=== PATIENT | male | born 1955 | race African-American/Black ===

== ENCOUNTER 2016-07-08 09:59 | Inpatient (IN) | payer OTHER ==
[2016-07-08] VITALS (8 sets, daily range): BP systolic 146–201; BP diastolic 75–117; PULSE 71; TEMP 36.9; O2SAT 94; Ht 172.7 cm; Wt 97.3 kg
[~2016-07-08] VITALS: Ht 172.7 cm; Wt 97.3 kg
[2016-07-08] MEDS ORDERED: ONDANSETRON INJ 2 MG/ML 2 ML VIAL IV STA (10:21)
[2016-07-08] MEDS ORDERED: MoRPHine SULFATE 4 MG/ML 1 ML CARP\\VIAL IV STA ×2 (10:21→12:25)
[2016-07-08] MEDS ORDERED: OPTIRAY 320 IV PRN (10:30)
[2016-07-08 10:48] LABS: BASO % 0.2 %; BASO ABS # 0.01 K/uL (0-0.2); COMPLETE YES; EOS % 0.2 %; HEMATOCRIT 43.8 % (42-52); IG% 0.3 %; LYMPH % 31.6 %; LYMPH ABS # 1.91 K/uL (1.2-3.4); MEAN CELL VOLUME 79.1 fL (80-100); MEAN CORPUSCULAR HEMOGLOBIN 28.3 pg (25-34); MEAN CORPUSCULAR HGB CONC 35.8 g/dl (32-36); MEAN PLATELET VOLUME 9.6 fL (7.4-10.4); MONO % 6.9 %; NEUT % 60.8 %; PLATELET COUNT 185 K/uL (130-400); RED BLOOD COUNT 5.54 M/uL (4.7-6.1); WHITE BLOOD COUNT 6.05 K/uL (4.8-10.8)
[2016-07-08 11:08] LABS: URINE APPEARANCE CLEAR (CLEAR); URINE BILIRUBIN NEG (NEG); URINE COLOR DK YELLOW; URINE NITRITE NEG (NEG); URINE PH 6.5 (4.5-7.5); URINE SPECIFIC GRAVITY 1.022 (1.000-1.030); UROBILINOGEN NEG (NEG)
[2016-07-08 11:09] LABS: MANUAL MICROSCOPIC REQUIRED? NO; REVIEW REQ? NO
[2016-07-08 11:20] LABS: ALKALINE PHOSPHATASE 88 U/L (45-117); ALT/SGPT 35 U/L (12-78); AST/SGOT 27 U/L (15-37); BLOOD UREA NITROGEN 14 mg/dl (7-18); BUN/CREATININE RATIO 12.7 (10-20); CALCIUM 9.2 mg/dl (8.5-10.1); CARBON DIOXIDE 30 mmol/L (21-32); CHLORIDE 102 mmol/L (98-107); GLUCOSE 209 mg/dl (70-99); POTASSIUM 3.9 mmol/L (3.5-5.1); SODIUM 137 mmol/L (136-145)
--- NOTE | 2016-07-08 12:15 | DIAGNOSTIC IMAGING REPORT ---
ABDOMEN AND PELVIS CT WITH IV CONTRAST CT DOSE: 1025.62 mGycm HISTORY: Right lower quadrant abdominal pain. TECHNIQUE: Multiaxial CT images of the abdomen and pelvis were performed following the use of intravenous contrast. COMPARISON STUDY: None. FINDINGS: Bibasilar linear densities consistent with subsegmental atelectasis. No pneumoperitoneum. No pneumatosis. Tiny fat-containing umbilical hernia. No suspicious lytic or blastic osseous lesions. Trace pelvic free fluid. Mild bladder wall thickening may be due to underdistention. Multiple mildly thickened loops of small bowel within the left lower quadrant. This is consistent with a nonspecific enteritis. There is trace mesenteric edema. No dilated loops of small bowel to suggest an obstruction at this time. Normal appendix. Trace perisplenic ascites. The liver, spleen, adrenal glands, and kidneys are within normal limits. No hydronephrosis. No retroperitoneal lymphadenopathy. The pancreatic duct within the body and tail the pancreas is distended measuring up to 1 cm with associated severe pancreatic atrophy. There is abrupt caliber change at the head of the pancreas. The head of the pancreas appears bulbous. Therefore, these findings are highly suspicious for a pancreatic head mass. However, the common bile duct is normal in caliber. The main portal vein is patent. However, the fat plane between the pancreatic head and portal splenic confluence appears obliterated. This is also concerning for pancreatic head lesion. IMPRESSION: 1. Multiple mildly thickened loops of small bowel within the left lower quadrant with surrounding mesenteric fluid. This is consistent with a nonspecific enteritis. 2. Distended main pancreatic duct within the body and tail of the pancreas with associated severe pancreatic atrophy. There is abrupt caliber change of the pancreatic duct at the bulbous appearing pancreatic head. Therefore, these findings are highly suspicious for a pancreatic head mass. This requires endoscopic ultrasound follow-up for confirmation. Electronically signed by: Blayne Moreno M.D. 07/08/2016 12:13 PM Dictated Date/Time: 07/08/2016 12:01 PM
[2016-07-08] MEDS ORDERED: OMEP20TA PO (12:33)
[2016-07-08] MEDS ORDERED: MULT-17 PO (12:33)
[2016-07-08] MEDS ORDERED: GABA600T PO (12:33)
[2016-07-08] MEDS ORDERED: ATOR-24 PO (12:33)
[2016-07-08] MEDS ORDERED: CHOL1000 PO (12:33)
[2016-07-08] MEDS ORDERED: INSHRIE SQ (12:33)
[2016-07-08] MEDS ORDERED: LISI-461 PO (12:33)
[2016-07-08] MEDS ORDERED: HYDR50CA2 PO (12:33)
[2016-07-08] MEDS ORDERED: IMD2 PO (12:33)
[2016-07-08] MEDS ORDERED: ELVI1TAB6 PO (12:33)
[2016-07-08] MEDS ORDERED: INSU1INJ SC (12:33)
[2016-07-08] MEDS ORDERED: LSN/10125 PO (12:33)
[2016-07-08] MEDS ORDERED: ACETAMINOPHEN 325 MG TAB PO PRN (13:45)
[2016-07-08] MEDS ORDERED: ONDANSETRON INJ 2 MG/ML 2 ML VIAL IV PRN (13:45)
[2016-07-08] MEDS ORDERED: ALUMINUM/MAGNESIUM/SIMETH (MAALOX MAX) 30 ML UDC PO PRN (13:45)
[2016-07-08] MEDS ORDERED: HYDROmorphone INJ 0.5 MG/0.5 ML SYR IV PRN (13:45)
[2016-07-08] MEDS ORDERED: MAGNESIUM HYDROXIDE SUSP 30 ML UDC PO PRN (13:45)
[2016-07-08] MEDS ORDERED: POLYETHYLENE (MIRALAX) 17 GM PACK PO PRN (13:45)
[2016-07-08] MEDS ORDERED: MoRPHine SULFATE 10 MG/ML CARP/VIAL IV PRN (14:15)
[2016-07-08] MEDS ORDERED: GLUCOSE 40% GEL 15 GM TUBE PO PRN (15:30)
[2016-07-08] MEDS ORDERED: DEXTROSE 50% 50 ML SYR IV PRN (15:30)
[2016-07-08] MEDS ORDERED: GLUCOSE 10 TABS/TUBE PO PRN (15:30)
[2016-07-08] MEDS ORDERED: GLUCAGON FOR INJ 1 MG VIAL SQ PRN (15:30)
[2016-07-08] MEDS ORDERED: ACETAMINOPHEN IV 100 ML IV PRN (15:45)
--- NOTE | 2016-07-08 15:52 | History and Physical ---
History & Physical Date & Time of Service: Jul 08, 2016 at 13:26 Chief Complaint: Abd. Pain Primary Care Physician: Lalo WALTERS History of Present Illness Source: patient Mr. Delgadillo is a 61 y/o male with PMHx of GERD/Ruptured PUD, Diabetes Mellitus, HTN, HLD, Hepatitis C, and HIV (CD4 1100, undetectable viral load) who presents to the ED complaining of constant diffuse abdominal pain 2 days. Patient is a prisoner from [facility]. Reports pain started suddenly and he describes it as sore and a 10/10. He cannot pinpoint a specific location that is worse than the rest. He states this pain feels similar to when he had a ruptured peptic ulcer which he underwent surgery 3 years ago for. Associated vomiting with clear emesis. He denies coffee-ground emesis. Associated constipation with last bowel movement prior to these symptoms onset. Associated abdominal distention. He denies fever/chills, chest pain, SOB, dysuria, diarrhea. He denies contacts. He denies chronic NSAID use. Patient is HIV positive and currently on Genvoya with last dose taken this morning. In the ED, he is afebrile and mildly hypertensive. No evidence of leukocytosis and lipase is WNL. Abdominal CT revealing multiple mildly thickened loops of small bowel in the left lower quadrant and mesenteric fluid that suggests nonspecific enteritis, evidence of a distended main pancreatic duct, and severe pancreatic atrophy. CT imaging suggesting a pancreatic head mass. Patient will be admitted to [facility] for pain management and GI consultation in regards to CT findings. Past Medical/Surgical History Medical Problems: (1) Diabetes Status: Chronic (2) Hepatitis C Status: Chronic (3) HIV (human immunodeficiency virus infection) Status: Chronic Family History Patient reports no known family medical history. Social History Smoking Status: Never Smoker Smokeless Tobacco Use: Yes Alcohol Use: none Drug Use: none Housing status: other ([facility] prisoner) Allergies Coded Allergies: No Known Allergies (Unverified , 07/08/16) Home Medications Scheduled Atorvastatin (Lipitor), 40 MG PO DAILY Cholecalciferol (Vitamin D3), 1 TAB PO DAILY Wgwfvayigzui-Gbqztwyabh-Gphpqo (Genvoya [phone] mg), 1 TAB PO DAILY Gabapentin (Neurontin), 600 MG PO TID Hctz/Lisinopril (Lisinopril/Hctz 10/12.5 Mg), 1 TAB PO DAILY Hydroxyzine Pamoate (Vistaril), 50 MG PO QPM Insulin Human Regular (Humulin R), 1 DOSE SQ QID Insulin Isophan/Regular (Humulin 70/30), 37 UNITS SC AMPM Lisinopril (Zestril), 10 MG PO DAILY Multiple Vitamins W/ Minerals (Thera M Plus), 1 TAB PO DAILY Omeprazole (Omeprazole), 1 TAB PO DAILY Miscellaneous Medications Loperamide HCl (Loperamide HCl), 1 CAP PO Review of Systems REVIEW OF SYSTEMS: General/Constitutional: Denies fever/chills, fatigue, weakness, weight gain/loss ENT: Denies visual changes, nasal drainage, hearing loss, sore throat, trouble swallowing Cardiovascular: Denies chest pain, palpitations, edema Respiratory: Denies cough, sputum, SOB, wheezing, orthopnea GI: +nausea, +vomiting, +diffuse abdominal pain, +constipation; Denies diarrhea , melena/hematochezia : Denies dysuria, frequency, hematuria Musculoskeletal: Denies joint/muscle aches, weakness, swelling Neurologic: Denies dizziness/lightheadedness, numbness/tingling, weakness Psychiatric: Deferred Endocrine: Deferred Hematologic/Lymphatic: +HIV positive; Denies bleeding/clotting abnormalities Skin: Denies rash, itch, new skin changes, easy bruising Allergy/Immunologic: Deferred Physical Exam Vital Signs Date Time Temp Pulse Resp B/P Pulse Ox O2 Delivery O2 Flow Rate FiO2 07/08/16 12:18 74 14 182/107 92 Room Air 07/08/16 10:43 79 20 162/94 97 Room Air 07/08/16 10:11 36.5 85 20 167/110 93 Room Air PHYSICAL EXAM:: General Appearance: WDWN in mild distress(uncomfortable) and chronically ill- appearing who is A&O x 3 HEENT: Head is normocephalic/atraumatic; EOMI; PERRLA; Hearing grossly intact; Mucous membranes dry; Pharynx negative for exudate/lesions Neck: Supple; Trachea midline; Neg JVD; Neg lymphadenopathy Heart: RRR with no M/G/R Lungs: CTA in all lung keenan bilaterally; Respirations unlabored; Neg accessory muscle use Abdomen: Soft, non-tender with light and deep palpation, non-distended; Positive BS x 4 quadrants; Neg organomegaly, neg acute abdomen/guarding/rigidity Extremities: Capillary refill < 2 seconds; Neg cyanosis or edema Neurological: Speech clear; Gross motor/sensory function intact; Neg focal neurologic deficits Psychiatric: Appropriate mood/affect Skin: Normal Color; Warm/Dry; Neg rashes, ecchymosis, lacerations/ulcerations Diagnostics Laboratory Results Results Past 24 Hours Test 07/08/16 10:32 07/08/16 10:51 Range/Units White Blood Count 6.05 4.8-10.8 K/uL Red Blood Count 5.54 4.7-6.1 M/uL Hemoglobin 15.7 14.0-18.0 g/dL Hematocrit 43.8 42-52 % Mean Corpuscular Volume 79.1 80-100 fL Mean Corpuscular Hemoglobin 28.3 25-34 pg Mean Corpuscular Hemoglobin Concent 35.8 32-36 g/dl Platelet Count 185 130-400 K/uL Mean Platelet Volume 9.6 7.4-10.4 fL Neutrophils (%) (Auto) 60.8 % Lymphocytes (%) (Auto) 31.6 % Monocytes (%) (Auto) 6.9 % Eosinophils (%) (Auto) 0.2 % Basophils (%) (Auto) 0.2 % Neutrophils # (Auto) 3.68 1.4-6.5 K/uL Lymphocytes # (Auto) 1.91 1.2-3.4 K/uL Monocytes # (Auto) 0.42 0.11-0.59 K/uL Eosinophils # (Auto) 0.01 0-0.5 K/uL Basophils # (Auto) 0.01 0-0.2 K/uL RDW Standard Deviation 40.5 36.4-46.3 fL RDW Coefficient of Variation 14.1 11.5-14.5 % Immature Granulocyte % (Auto) 0.3 % Immature Granulocyte # (Auto) 0.02 0.00-0.02 K/uL Sodium Level 137 136-145 mmol/L Potassium Level 3.9 3.5-5.1 mmol/L Chloride Level 102 98-107 mmol/L Carbon Dioxide Level 30 21-32 mmol/L Anion Gap 5.0 3-11 mmol/L Blood Urea Nitrogen 14 7-18 mg/dl Creatinine 1.10 0.60-1.40 mg/dl Est Creatinine Clear Calc Drug Dose 80.8 ml/min Estimated GFR () 84.1 Estimated GFR (Non- 72.6 BUN/Creatinine Ratio 12.7 10-20 Random Glucose 209 70-99 mg/dl Calcium Level 9.2 8.5-10.1 mg/dl Total Bilirubin 0.7 0.2-1 mg/dl Direct Bilirubin 0-0.2 mg/dl Aspartate Amino Transf (AST/SGOT) 27 15-37 U/L Alanine Aminotransferase (ALT/SGPT) 35 12-78 U/L Alkaline Phosphatase 88 45-117 U/L Total Protein 8.2 6.4-8.2 gm/dl Albumin 3.8 3.4-5.0 gm/dl Lipase 108 73-393 U/L Chemistry Specimen Hemolysis Urine Color DK YELLOW Urine Appearance CLEAR CLEAR Urine pH 6.5 4.5-7.5 Urine Specific [place] 1.022 1.000-1.030 Urine Protein TRACE NEG Urine Glucose (UA) TRACE NEG Urine Ketones NEG NEG Urine Occult Blood TRACE NEG Urine Nitrite NEG NEG Urine Bilirubin NEG NEG Urine Urobilinogen NEG NEG Urine Leukocyte Esterase NEG NEG Urine WBC (Auto) 0 0-5 /hpf Urine RBC (Auto) 5-10 0-4 /hpf Urine Hyaline Casts (Auto) 1-5 0-5 /lpf Urine Epithelial Cells (Auto) 5-10 0-5 /lpf Urine Bacteria (Auto) NEG NEG Diagnostic Radiology 1. ABDOMEN AND PELVIS CT WITH IV CONTRAST CT DOSE: 1025.62 mGycm HISTORY: Right lower quadrant abdominal pain. TECHNIQUE: Multiaxial CT images of the abdomen and pelvis were performed following the use of intravenous contrast. COMPARISON STUDY: None. FINDINGS: Bibasilar linear densities consistent with subsegmental atelectasis. No pneumoperitoneum. No pneumatosis. Tiny fat-containing umbilical hernia. No suspicious lytic or blastic osseous lesions. Trace pelvic free fluid. Mild bladder wall thickening may be due to underdistention. Multiple mildly thickened loops of small bowel within the left lower quadrant. This is consistent with a nonspecific enteritis. There is trace mesenteric edema. No dilated loops of small bowel to suggest an obstruction at this time. Normal appendix. Trace perisplenic ascites. The liver, spleen, adrenal glands, and kidneys are within normal limits. No hydronephrosis. No retroperitoneal lymphadenopathy. The pancreatic duct within the body and tail the pancreas is distended measuring up to 1 cm with associated severe pancreatic atrophy. There is abrupt caliber change at the head of the pancreas. The head of the pancreas appears bulbous. Therefore, these findings are highly suspicious for a pancreatic head mass. However, the common bile duct is normal in caliber. The main portal vein is patent. However, the fat plane between the pancreatic head and portal splenic confluence appears obliterated. This is also concerning for pancreatic head lesion. IMPRESSION: 1. Multiple mildly thickened loops of small bowel within the left lower quadrant with surrounding mesenteric fluid. This is consistent with a nonspecific enteritis. 2. Distended main pancreatic duct within the body and tail of the pancreas with associated severe pancreatic atrophy. There is abrupt caliber change of the pancreatic duct at the bulbous appearing pancreatic head. Therefore, these findings are highly suspicious for a pancreatic head mass. This requires endoscopic ultrasound follow-up for confirmation. Impression Assessment and Plan Intractable Abdominal Pain with Pancreatic Mass: Normal Lipase - CT recommending further evaluation for possible mass - patient does look uncomfortable however pain is not increased with palpation and no evidence of rigidity/guarding/acute abdomen - patient is largely laying in position - NSS at 100 mL/hr - Morphine 4-6 mg IV (mild-moderate pain) and Dilaudid 0.5-1 mg IV Q3H PRN ( severe pain) - exam largely benign can probably de-escalate -- Will place Tylenol IV as well - Trend CMP and lipase/amylase - MRCP - Consult GI - probable need for ERCP Hypertension: - Did not confirm home medications that show lisinopril and lisinopril/HCTZ - Hydralazine 10 mg IV PRN HIV: CD4 1100 with undetectable viral load x 3 weeks ago - Code SELENA May - talk with medical team - requesting they sent over Ryley for his AM dosing - Emphasized the importance of not missing HIV dosing as pharmacy does not carry this medication - Nurse coordinator reports he will arrange transport Diabetes Mellitus with Neuropathy: - Hold home insulin therapy as he will be NPO - SSI - goal range 120-160, correction factor 35 - Gabapentin 600 mg TID GERD with H/O Ruptured PUD: - Protonix 40 mg IV daily - will NPO and with emesis DVT Prophylaxis: TARIK/SCDs; may need chemical prophylaxis tomorrow pending intervention from GI Code Status: FULL RESUSCITATION Disposition: Return to [facility] Level of Care Med/Surg Resuscitation Status FULL RESUSCITATION VTE Prophylaxis VTE Risk Assessment Done? Y/N: Yes Risk Level: Moderate Given or contraindicated: Rukhsana Zamudio SCD's Assessment and Plan Attending Addendum: I have physically seen and examined this patient, have directed their medical care, have supervised the PA's activity, and agree with the H&P as noted above, with the following changes: NONE.
[2016-07-08] MEDS: SODIUM CHLORIDE 0.9% 1000ML 1,000 ML IV SCH ×2 (16:02→23:38)
[2016-07-08] MEDS: MoRPHine SULFATE 4 MG/ML 1 ML CARP\\VIAL IV PRN (16:02)
--- NOTE | 2016-07-08 16:24 | EMERGENCY ROOM VISIT NOTE ---
History Report prepared by Conchita: Felicitas Amaral Under the Supervision of: Dr. Valdemar Lewis M.D. First contact with patient: 10:11 Chief Complaint: ABDOMINAL PAIN Stated Complaint: ABD. PAIN History of Present Illness The patient is a 61 year old male who presents to the Emergency Room with complaints of constant diffuse abdominal pain that began 2 days ago. His pain is a 10/10 and he describes it as sore. The patient states that he noticed some diffuse abdominal swelling that began 2 days ago as well. He has vomited since his symptoms began and states that the emesis was clear. The patient has a history of a ruptured ulcer for which he had surgery 3 years ago. His current abdominal pain feels similar to the pain he had when the ulcer ruptured, although he had coffee ground emesis when the ulcer ruptured and has not had any coffee ground emesis since his pain started 2 days ago. Denies fever, diarrhea, black or bloody stools, or other complaints. The patient has a history of HIV for which he is medicated. His last CD4 count was 1100 with an undetectable viral load 3 weeks ago. Source of History: patient Onset: 2 days ago Position: abdomen (diffuse) Symptom Intensity: 10/10 Quality: other (sore) Timing: constant Modifying Factors (Relieving): other (none) Associated Symptoms: + vomiting, No diarrhea, No fevers Review of Systems See HPI for pertinent positives & negatives. A total of 10 systems reviewed and were otherwise negative. Past Medical & Surgical Medical Problems: (1) Diabetes (2) Hepatitis C (3) HIV (human immunodeficiency virus infection) (4) Intractable abdominal pain Family History No pertinent family history stated. Social History Housing Status: other (correctional facility) Current/Historical Medications Scheduled Atorvastatin (Lipitor), 40 MG PO DAILY Cholecalciferol (Vitamin D3), 1 TAB PO DAILY Osgrcqklwafq-Lqxybczark-Wcrazt (Genvoya [phone] mg), 1 TAB PO DAILY Gabapentin (Neurontin), 600 MG PO TID Hctz/Lisinopril (Lisinopril/Hctz 10/12.5 Mg), 1 TAB PO DAILY Hydroxyzine Pamoate (Vistaril), 50 MG PO QPM Insulin Human Regular (Humulin R), 1 DOSE SQ QID Insulin Isophan/Regular (Humulin 70/30), 37 UNITS SC AMPM Lisinopril (Zestril), 10 MG PO DAILY Multiple Vitamins W/ Minerals (Thera M Plus), 1 TAB PO DAILY Omeprazole (Omeprazole), 1 TAB PO DAILY Miscellaneous Medications Loperamide HCl (Loperamide HCl), 1 CAP PO Allergies Coded Allergies: No Known Allergies (Unverified , 07/08/16) Physical Exam Vital Signs Date Time Temp Pulse Resp B/P Pulse Ox O2 Delivery O2 Flow Rate FiO2 07/08/16 12:18 74 14 182/107 92 Room Air 07/08/16 10:43 79 20 162/94 97 Room Air 07/08/16 10:11 36.5 85 20 167/110 93 Room Air Physical Exam Constitutional: Vital signs reviewed. Eyes: Pupils are equal round reactive to light. Conjunctiva are noninjected. ENT: Pharynx is clear without erythema or exudate. Mucous membranes are moist. Neck supple without meningeal signs. Respiratory: Clear to auscultation bilaterally. Breath sounds are equal bilaterally. Cardiovascular: Regular rate and rhythm. No rubs or gallops. GI: Soft, nondistended. Epigastric and right lower quadrant tenderness, no rebound or guarding. Bowel sounds are present. Musculoskeletal: No peripheral edema. No lower extremity tenderness. Integumentary: No cyanosis. Neurological: The patient is awake and alert. No focal deficits. Psychiatric: Normal affect. Medical Decision & Procedures ER Provider Diagnostic Interpretation: Radiology results as stated below per my review and the radiologist's interpretation: ABDOMEN AND PELVIS CT WITH IV CONTRAST CT DOSE: 1025.62 mGycm HISTORY: Right lower quadrant abdominal pain. TECHNIQUE: Multiaxial CT images of the abdomen and pelvis were performed following the use of intravenous contrast. COMPARISON STUDY: None. FINDINGS: Bibasilar linear densities consistent with subsegmental atelectasis. No pneumoperitoneum. No pneumatosis. Tiny fat-containing umbilical hernia. No suspicious lytic or blastic osseous lesions. Trace pelvic free fluid. Mild bladder wall thickening may be due to underdistention. Multiple mildly thickened loops of small bowel within the left lower quadrant. This is consistent with a nonspecific enteritis. There is trace mesenteric edema. No dilated loops of small bowel to suggest an obstruction at this time. Normal appendix. Trace perisplenic ascites. The liver, spleen, adrenal glands, and kidneys are within normal limits. No hydronephrosis. No retroperitoneal lymphadenopathy. The pancreatic duct within the body and tail the pancreas is distended measuring up to 1 cm with associated severe pancreatic atrophy. There is abrupt caliber change at the head of the pancreas. The head of the pancreas appears bulbous. Therefore, these findings are highly suspicious for a pancreatic head mass. However, the common bile duct is normal in caliber. The main portal vein is patent. However, the fat plane between the pancreatic head and portal splenic confluence appears obliterated. This is also concerning for pancreatic head lesion. IMPRESSION: 1. Multiple mildly thickened loops of small bowel within the left lower quadrant with surrounding mesenteric fluid. This is consistent with a nonspecific enteritis. 2. Distended main pancreatic duct within the body and tail of the pancreas with associated severe pancreatic atrophy. There is abrupt caliber change of the pancreatic duct at the bulbous appearing pancreatic head. Therefore, these findings are highly suspicious for a pancreatic head mass. This requires endoscopic ultrasound follow-up for confirmation. Electronically signed by: Blayne Moreno M.D. 07/08/2016 12:13 PM Dictated Date/Time: 07/08/2016 12:01 PM Laboratory Results 07/08/16 10:32 Red Blood Count 5.54, Mean Corpuscular Volume 79.1, Mean Corpuscular Hemoglobin 28.3, Mean Corpuscular Hemoglobin Concent 35.8, Mean Platelet Volume 9.6, Neutrophils (%) (Auto) 60.8, Lymphocytes (%) (Auto) 31.6, Monocytes (%) (Auto) 6.9, Eosinophils (%) (Auto) 0.2, Basophils (%) (Auto) 0.2, Neutrophils # (Auto) 3.68, Lymphocytes # (Auto) 1.91, Monocytes # (Auto) 0.42, Eosinophils # (Auto) 0.01, Basophils # (Auto) 0.01 07/08/16 10:32 Test 07/08/16 10:32 07/08/16 10:51 White Blood Count 6.05 K/uL (4.8-10.8) Red Blood Count 5.54 M/uL (4.7-6.1) Hemoglobin 15.7 g/dL (14.0-18.0) Hematocrit 43.8 % (42-52) Mean Corpuscular Volume 79.1 fL (80-100) Mean Corpuscular Hemoglobin 28.3 pg (25-34) Mean Corpuscular Hemoglobin Concent 35.8 g/dl (32-36) Platelet Count 185 K/uL (130-400) Mean Platelet Volume 9.6 fL (7.4-10.4) Neutrophils (%) (Auto) 60.8 % Lymphocytes (%) (Auto) 31.6 % Monocytes (%) (Auto) 6.9 % Eosinophils (%) (Auto) 0.2 % Basophils (%) (Auto) 0.2 % Neutrophils # (Auto) 3.68 K/uL (1.4-6.5) Lymphocytes # (Auto) 1.91 K/uL (1.2-3.4) Monocytes # (Auto) 0.42 K/uL (0.11-0.59) Eosinophils # (Auto) 0.01 K/uL (0-0.5) Basophils # (Auto) 0.01 K/uL (0-0.2) RDW Standard Deviation 40.5 fL (36.4-46.3) RDW Coefficient of Variation 14.1 % (11.5-14.5) Immature Granulocyte % (Auto) 0.3 % Immature Granulocyte # (Auto) 0.02 K/uL (0.00-0.02) Anion Gap 5.0 mmol/L (3-11) Est Creatinine Clear Calc Drug Dose 80.8 ml/min Estimated GFR () 84.1 Estimated GFR (Non- 72.6 BUN/Creatinine Ratio 12.7 (10-20) Calcium Level 9.2 mg/dl (8.5-10.1) Total Bilirubin 0.7 mg/dl (0.2-1) Direct Bilirubin mg/dl (0-0.2) Aspartate Amino Transf (AST/SGOT) 27 U/L (15-37) Alanine Aminotransferase (ALT/SGPT) 35 U/L (12-78) Alkaline Phosphatase 88 U/L (45-117) Total Protein 8.2 gm/dl (6.4-8.2) Albumin 3.8 gm/dl (3.4-5.0) Lipase 108 U/L (73-393) Chemistry Specimen Hemolysis Urine Color DK YELLOW Urine Appearance CLEAR (CLEAR) Urine pH 6.5 (4.5-7.5) Urine Specific [place] 1.022 (1.000-1.030) Urine Protein TRACE (NEG) Urine Glucose (UA) TRACE (NEG) Urine Ketones NEG (NEG) Urine Occult Blood TRACE (NEG) Urine Nitrite NEG (NEG) Urine Bilirubin NEG (NEG) Urine Urobilinogen NEG (NEG) Urine Leukocyte Esterase NEG (NEG) Urine WBC (Auto) 0 /hpf (0-5) Urine RBC (Auto) 5-10 /hpf (0-4) Urine Hyaline Casts (Auto) 1-5 /lpf (0-5) Urine Epithelial Cells (Auto) 5-10 /lpf (0-5) Urine Bacteria (Auto) NEG (NEG) Laboratory results as reviewed by me. Medications Administered Medications (Trade) Dose Ordered Sig/Nurys Route Start Time Stop Time Status Last Admin Dose Admin Morphine Sulfate (MoRPHine SULFATE INJ) 4 mg ONE STAT IV 07/08/16 10:21 07/08/16 10:23 DC 07/08/16 10:44 4 MG Ondansetron HCl (Zofran Inj) 4 mg NOW STAT IV 07/08/16 10:21 07/08/16 10:23 DC 07/08/16 10:44 4 MG Morphine Sulfate 4 mg 4 mg NOW STAT IV 07/08/16 12:25 07/08/16 12:26 DC 07/08/16 12:47 4 MG Sodium Chloride (Nss 1000ml) 1,000 ml @ 100 mls/hr Q10H IV 07/08/16 13:45 08/07/16 13:44 07/08/16 16:02 100 MLS/HR ED Course 1014: The patient was evaluated in room B11. A complete history and physical exam was performed. 1021: Ordered Zofran Inj 4 mg IV, Morphine Sulfate 4 mg IV. 1225: I reassessed the patient. He is still in pain. Ordered Morphine Sulfate 4 mg IV. 1236: I spoke with Dr. Garsia from [facility]. She said that the patient cannot get in to see GI for another two weeks and they cannot manage the patient at the halfway. 1249: I discussed the case with Dr. Rodríguez - [facility] [place] [facility]. The patient will be evaluated for further management. Medical Decision This is a 61-year-old male who presents with abdominal pain. Differential diagnosis includes ruptured viscus, appendicitis, peptic ulcer disease, pancreatitis, abscess, irritable bowel syndrome. I did perform a limited focused review of portions of the patient's old chart on the electronic medical record. The patient has had no prior visits to this hospital. I did evaluate the patient as noted above. IV access was established. I did treat patient with IV morphine and Zofran.I did order and review the urinalysis as described above. I did order and review the patient's blood work as noted in the electronic medical record. His white blood cell count is not elevated. He does have hyperglycemia. I did order a CT of the abdomen and pelvis. I did review the images myself as well as the radiology report as described above. He appears to have a pancreatic mass. I did reevaluate the patient and discussed the test results with him. He is still having pain and was given additional dose of morphine IV. I did discuss the case with the halfway physician who did not feel comfortable managing his symptoms and pathology as an outpatient. I therefore discussed the case with the hospitalist and continuous pillowcase cutter for further evaluation and treatment in the hospital. Consults Time Called: 1230 Consulting Physician: Dr. Garsia from [facility] Returned Call: [address] Garsia from [facility]. She said that the patient cannot get in to see GI for another two weeks and they cannot manage the patient at the halfway. Additional Consults: Time Called: 1243 Consulted Physician: Dr. Rodríguez [facility] Hospitalist Returned Call: [phone] Additional Comments: I discussed the case with her. The patient will be evaluated for further management. Impression Primary Impression: Intractable abdominal pain Additional Impression: Pancreatic mass Scribe Attestation The scribe's documentation has been prepared under my direct and personally reviewed by me in its entirety. I confirm that the note above accurately reflects all work, treatment, procedures, and medical decision making performed by me. Departure Information Dispostion Being Evaluated By Hospitalist Referrals Lalo WALTERS (PCP) Patient Instructions My [facility] Problem Qualifiers
[2016-07-08] MEDS: HydrALAZINE HCL 20 MG/ML VIAL IV. PRN ×2 (16:25→22:10)
[2016-07-08] MEDS: INSULIN ASPART 100 UNITS/ML 3 ML PEN SC SCH ×2 (16:30→21:00)
[2016-07-08] MEDS: HYDROmorphone INJ 1 MG/ML SYR IV PRN (17:18)
[2016-07-08] MEDS: hydrOXYzine HCL 25 MG TAB PO SCH (18:46)
[2016-07-08] MEDS: GABAPENTIN 600 MG TAB PO SCH (21:35)
--- NOTE | 2016-07-08 21:39 | GASTROINTESTINAL CONSULTATION ---
DATE: 07/08/2016 GASTROENTEROLOGY CONSULTATION NOTE CHIEF COMPLAINT: Diffuse abdominal pain, right lower quadrant abdominal pain, abnormal CT findings and suspected pancreatic mass. Mr. Delgadillo is a 61-year-old male, who presented to the Emergency Room earlier today with diffuse abdominal pain that mostly occurred on the right side of the abdomen and right lower quadrant area. This had an acute onset in pain from Tuesday. The patient denies any fever, chills, nausea, vomiting, changes in bowel habits, melena or bright red blood per rectum. The patient also denies any night sweats. The patient has not had any prior history of pancreatic disorders by his recollection. The patient did report abdominal distension with this, although some of those relieved with flatus. During his Emergency Room visit workup, he was found to have mild microcytosis although his white count and hemoglobin are in the normal range. In addition, his liver function panel and lipase were normal. CT scan suggested some thickened loops of small bowel in the left side of the abdomen with mesenteric fluids suggesting an enteritis although there was a markedly distended pancreatic duct with a transition point in the vicinity of the head of the pancreas. The patient denies any prior history of malignancy, leukemia or lymphoma. PAST MEDICAL HISTORY: Significant for diabetes, hepatitis C, HIV for which his CD4 count was 1100 a few weeks ago and an undetectable viral load. In addition to that the patient has hypercholesterolemia, diabetes mellitus for which he has been insulin-dependent for many years and has a history of diabetes for at least 30 years. ALLERGIES: He has no known drug allergies. MEDICATIONS: His HIV medication is Genvoya one tablet daily, elvitegravir cobicistat and emtric. He is also on gabapentin for diabetic neuropathy, lisinopril, HCTZ, hydroxyzine, insulin and multivitamins. He is also on Omeprazole one tablet daily. FAMILY HISTORY: Noncontributory. There is no family history of colorectal cancer, pancreatic cancer or other malignancies of the intestinal tract. SOCIAL HISTORY: The patient does smoke tobacco. He denies alcohol use. He is incarcerated currently and is at [facility]. REVIEW OF SYSTEMS: Otherwise noncontributory based on 14-point exam except for as mentioned above. The patient denies odynophagia, dysphagia, hematemesis, coffee-ground emesis, melena or bright red blood per rectum. Generally he has normal bowel movements, occasionally loose. There were no recent changes to this. PHYSICAL EXAMINATION: VITAL SIGNS: In the ER afebrile at 36.5, heart rate 85, respirations 20, blood pressure 167/110, pulse ox 93% on room air. GENERAL: The patient is awake, alert and oriented x3. He has mild abdominal distress. He is restrained with handcuffs and has two supervising detention guards in the room. HEENT: The oral mucosa is moist. Sclerae anicteric. Conjunctivae moist. NECK: There is no cervical or supraclavicular adenopathy. I do not appreciate thyromegaly. LUNGS: Clear to auscultation without rales, rhonchi or wheezes. HEART: Normal S1, S2 without rubs, gallops or murmurs. ABDOMEN: Soft, mildly tender in the vicinity of the epigastrium and right upper quadrant and to a lesser extent in the left side of the abdomen as well as right-sided mid and lower abdominal pain. This was not always reproducible. There are positive bowel sounds. I do not appreciate hepatosplenomegaly or Vasquez's sign. EXTREMITIES: Without clubbing, cyanosis or edema. NEUROLOGIC: Limited exam due to restraints, but no focal defects noted. SKIN: Has tattoos. LABORATORY STUDIES: On admission; white count is 6.0, hemoglobin 15.7, MCV of 79, normal RDW, platelets 185,000. BUN and creatinine are 14 and 1.1 with a potassium of 3.9, bicarb is 30. Liver panel is essentially normal. Total bilirubin 0.7, AST 27, ALT 35, alk phos 88, total protein 8.2, albumin 3.8, lipase is normal at 108. Urinalysis shows trace protein, glucose and occult blood; but ketones, nitrites and leukocyte esterase are negative. There are no urinary bacteria. CT scan was reviewed and reveals a dilated pancreatic duct that measures at approximately 1 cm in area; this appears to be throughout the body and tail and as the head is approached the duct becomes more distorted. There is an inhomogeneous abnormality to the region of the head of the pancreas. The biliary system is not dilated and the liver is unremarkable. The area between the pancreatic head and portal splenic confluence appears obliterated. IMPRESSION AND PLAN: Mr. Delgadillo presents with a 2-day history of abdominal pain without any meaning for constitutional symptoms (no evidence for weight loss, change in bowel habits, fevers, chills or night sweats) with diffuse abdominal pain although somewhat localizing to the right side of the abdomen, particularly in the right upper quadrant epigastrium and right side. There is no evidence of ascites on exam. There are some mildly thickened loops of bowel on the left side of the abdomen which may reflect an enteritis, although more notable is the pancreatic lesion which although structurally is presenting with a pancreatic duct obstruction upstream. He is not experiencing either biliary obstruction or pancreatitis. Calcifications are not appreciated. The differential diagnoses includes primary pancreatic adenocarcinoma, possible lymphoma and focal changes that may reflect pancreatitis, although, there are no clear or significant stones within the pancreatic duct or parenchyma surrounding this region. I made the following recommendations; we will plan for an EUS for tomorrow to assess this area and take fine needle aspirations as the schedule permits. The source of patient's pain remains unclear. There does not appear to be an occluded portal vein and although some edema is noted on the left side, is not diffusely edematous to suggest a superior mesenteric vein occlusion or thrombosis. Will keep the patient n.p.o. after midnight except for medications with tentative plans for EUS tomorrow at approximately noon (if schedule permits). Pain medicines as you were doing. All questions were answered for the patient. RENÉED
[2016-07-09] VITALS (7 sets, daily range): BP systolic 144–190; BP diastolic 78–102; PULSE 78–105; TEMP 36.4–37.4; O2SAT 90–94
[2016-07-09] MEDS: HYDROmorphone INJ 1 MG/ML SYR IV PRN ×2 (01:50→07:37)
[2016-07-09] MEDS: HydrALAZINE HCL 20 MG/ML VIAL IV. PRN (04:07)
[2016-07-09] MEDS ORDERED: LISINOPRIL/HCTZ 10/12.5MG TAB PO ONE (05:00)
[2016-07-09 07:19] LABS: HEMATOCRIT 42.1 % (42-52); MEAN CORPUSCULAR HEMOGLOBIN 28.7 pg (25-34); MEAN CORPUSCULAR HGB CONC 35.4 g/dl (32-36); MEAN PLATELET VOLUME 10.1 fL (7.4-10.4); PLATELET COUNT 190 K/uL (130-400); WHITE BLOOD COUNT 7.99 K/uL (4.8-10.8)
[2016-07-09] MEDS: GABAPENTIN 600 MG TAB PO SCH ×3 (07:40→21:11)
[2016-07-09 07:47] LABS: CALCIUM 8.3 mg/dl (8.5-10.1); CREATININE 1.1 mg/dl (0.60-1.40); MAGNESIUM 1.9 mg/dl (1.8-2.4)
[2016-07-09 07:49] LABS: ALB/GLOB RATIO 0.9 (0.9-2)
[2016-07-09] MEDS: INSULIN ASPART 100 UNITS/ML 3 ML PEN SC SCH ×4 (08:51→21:17)
[2016-07-09 08:57] LABS: ESTIMATED AVERAGE GLUCOSE 226 mg/dl; HA1C FLAG Normal (Normal)
[2016-07-09] MEDS: SODIUM CHLORIDE 0.9% 1000ML 1,000 ML IV SCH ×2 (09:28→20:10)
[2016-07-09] MEDS ORDERED: NURSING VERBAL MED ORDER ONE (10:15)
[2016-07-09] MEDS ORDERED: INSULIN HUMAN REGULAR IV ONE (10:15)
[2016-07-09] MEDS ORDERED: NovoLIN-R INSULIN PER UNIT CHARGE ONE ×2 (10:17→11:18)
[2016-07-09] MEDS ORDERED: EpHEDrine SULFATE INJ 50 MG/ML AMP IV PRN (10:30)
[2016-07-09] MEDS ORDERED: NALOXONE HCL 0.4 MG/1 ML VIAL/CARP IV PRN (10:30)
[2016-07-09] MEDS ORDERED: FENTANYL CITRATE INJ 50 MCG/1 ML 2 ML VIAL IV PRN (10:30)
[2016-07-09] MEDS ORDERED: ATROPINE SULFATE 0.1 MG/ML 5ML SYR IV PRN (10:30)
[2016-07-09] MEDS ORDERED: HYDROmorphone INJ 2 MG/ML SYR/VIAL IV PRN (10:30)
[2016-07-09] MEDS ORDERED: LABETALOL HCL IV 5 MG/ML 20ML IV PRN (10:30)
[2016-07-09] MEDS ORDERED: ONDANSETRON INJ 2 MG/ML 2 ML VIAL IV PRN (10:30)
[2016-07-09] MEDS ORDERED: PHENYLEPHRINE 100MCG/ML 5ML SYR IV PRN (10:30)
[2016-07-09] MEDS ORDERED: MEPERIDINE HCL 25 MG/ML CARP IV PRN (10:30)
[2016-07-09] MEDS ORDERED: FLUMAZENIL 0.1 MG/1 ML 10 ML VIAL IV PRN (10:30)
--- NOTE | 2016-07-09 10:40 | History & Physical Bridge Note ---
H&P Re-Evaluation Bridge Note: I have examined the patient, reviewed the History & Physical and in the interval since the performance of the History & Physical I have noted the following changes of clinical significance: No changes noted For EUS and possible FNA today for panc mass consent obtained after risks , benefits and alternatives discuused.
[2016-07-09] MEDS ORDERED: FENTANYL CITRATE INJ 50 MCG/1 ML 2 ML VIAL ONE ×2 (11:08→13:30)
[2016-07-09] MEDS ORDERED: INSULIN HUMAN REGULAR IT ONE (11:15)
[2016-07-09] MEDS ORDERED: MIDAZOLAM HCL 1 MG/ML 2ML VIAL ONE (11:56)
[2016-07-09] MEDS ORDERED: ONDANSETRON INJ 2 MG/ML 2 ML VIAL ONE (12:46)
[2016-07-09] MEDS ORDERED: LIDOCAINE HCL 2% 2 ML VIAL (20MG/ML) ONE (12:46)
[2016-07-09] MEDS ORDERED: SUCCINYLCHOLINE CHLORIDE 20 MG/ML 10 ML VIAL IV ONE (12:46)
[2016-07-09] MEDS ORDERED: PROPOFOL IV EMULSION 10 MG/ML 20 ML VIAL IV ONE ×2 (12:46→13:22)
[2016-07-09] MEDS ORDERED: LARYING-O-JET KIT (LTA) EXT ONE ×2 (12:52)
[2016-07-09] MEDS ORDERED: PHENYLEPHRINE HCL INJ 10 MG/ML VIAL ONE (13:46)
--- NOTE | 2016-07-09 14:39 | GI REPORT ---
Procedure Date: 07/09/2016 12:36 PM Procedure: Upper EUS Indications: Suspected mass in pancreas on CT scan Medicines: General Anesthesia Complications: No immediate complications. Estimated blood loss: Minimal. Estimated Blood Loss: Estimated blood loss was minimal. Procedure: Pre-Anesthesia Assessment: - Prior to the procedure, a History and Physical was performed, and patient medications and allergies were reviewed. The patient's tolerance of previous anesthesia was also reviewed. The risks and benefits of the procedure and the sedation options and risks were discussed with the patient. All questions were answered, and informed consent was obtained. Prior Anticoagulants: The patient has taken no previous anticoagulant or antiplatelet agents. ASA Grade Assessment: II - A patient with mild systemic disease. After reviewing the risks and benefits, the patient was deemed in satisfactory condition to undergo the procedure. After obtaining informed consent, the endoscope was passed under direct vision. Throughout the procedure, the patient's blood pressure, pulse, and oxygen saturations were monitored continuously. The Endosonoscope was introduced through the mouth, and advanced to the second part of duodenum. The upper EUS was accomplished without difficulty. The patient tolerated the procedure well. Findings: Endoscopic Finding : The examined esophagus was normal. The entire examined stomach was normal. The examined duodenum was normal. Endosonographic Finding : The esophagus, stomach and duodenum and adjacent structures were visualized endosonographically. There was no sign of significant endosonographic abnormality in the esophagus. No pathologic lymphadenopathy was identified. Endosonographic images of the stomach were unremarkable. No pathologic lymphadenopathy was identified. There was no sign of significant endosonographic abnormality in the ampulla. No pathologic lymphadenopathy was identified. There was no sign of significant endosonographic abnormality in the common bile duct and in the gallbladder. An unremarkable gallbladder was identified. There was no sign of significant endosonographic abnormality in the visualized portion of the liver. Homogeneous parenchyma, no focal pathology, no pathologic lymphadenopathy and no masses were identified. An oval mass was identified in the pancreatic head. The mass was hypoechoic and heterogenous. The mass measured 16 mm by 18 mm in maximal cross-sectional diameter. The endosonographic borders were well-defined. An intact interface was seen between the mass and the splenoportal confluence suggesting a lack of invasion. The remainder of the pancreas was examined. The endosonographic appearance of parenchyma and the upstream pancreatic duct indicated a maximum duct diameter of 8 mm. Fine needle aspiration for cytology was performed. Color Doppler imaging was utilized prior to needle puncture to confirm a lack of significant vascular structures within the needle path. Seven passes were made with the 22 gauge needle using a transduodenal approach. Some passes were made with a stylet. A brake drum lathe operator was present and performed a preliminary cytologic examination. The cellularity of the specimen was adequate. Final cytology results are pending. Verification of patient identification for the specimen was done by the physician and records management technician using the patient's name and medical record number. Pancreatic parenchymal abnormalities were noted in the pancreatic head. These consisted of. Fine needle aspiration for cytology was performed. Color Doppler imaging was utilized prior to needle puncture to confirm a lack of significant vascular structures within the needle path. Two passes were made with the 22 gauge needle using a transduodenal approach. Some passes were made with a stylet. A brake drum lathe operator was present and performed a preliminary cytologic examination. The cellularity of the specimen was adequate. Final cytology results are pending. One enlarged lymph node was visualized in the peripancreatic region. It measured 12 mm by 13 mm in maximal cross-sectional diameter. The node was irregular, hypoechoic and heterogenous and had poorly defined margins. Fine needle aspiration for cytology was performed. Color Doppler imaging was utilized prior to needle puncture to confirm a lack of significant vascular structures within the needle path. Two passes were made with the 22 gauge needle using a transduodenal approach. Some passes were made with a stylet. A brake drum lathe operator was present and performed a preliminary cytologic examination. The cellularity of the specimen was adequate. One round lesion was found in the left adrenal gland. This lesion was hypoechoic. Impression: - Normal esophagus. - Normal stomach. - Normal examined duodenum. - There was no sign of significant pathology in the esophagus. - Endosonographic images of the stomach were unremarkable. - There was no sign of significant pathology in the ampulla. - There was no sign of significant pathology in the common bile duct and in the gallbladder. - There was no evidence of significant pathology in the visualized portion of the liver. - A mass was identified in the pancreatic head. Fine needle aspiration performed. - Pancreatic parenchymal abnormalities consisting of were noted in the pancreatic head. Fine needle aspiration performed. - One enlarged lymph node was visualized in the peripancreatic region. Fine needle aspiration performed. Recommendation: - [facility]. - Advance diet as tolerated. - Clear liquid diet today. - Await cytology results and await tumor markers. MD Pratik Trejo MD 07/09/2016 2:38:40 PM This report has been signed electronically. Note Initiated On: 07/09/2016 12:36 PM I attest to the content of the Intraoperative Record and orders documented therein, exceptions below
--- NOTE | 2016-07-09 14:41 | Anesthesiology Progress Note ---
Anesthesia Post Op Note Date & Time Jul 09, 2016 at 14:39 Vital Signs Pain Intensity: 0 Vital Signs Past 12 Hours Date Time Temp Pulse Resp B/P Pulse Ox O2 Delivery O2 Flow Rate FiO2 07/09/16 14:25 95 23 131/71 99 Mask 10 07/09/16 14:15 37.3 95 16 132/75 99 Mask 10 07/09/16 10:01 156/88 07/09/16 08:00 Room Air 07/09/16 07:41 37.1 105 20 170/90 94 07/09/16 06:15 173/84 07/09/16 04:53 171/88 07/09/16 04:11 190/102 Notes Mental Status: alert / awake / arousable, participated in evaluation Pt Amnestic to Procedure: Yes Nausea / Vomiting: adequately controlled Pain: adequately controlled Airway Patency, RR, SpO2: stable & adequate BP & HR: stable & adequate Hydration State: stable & adequate Anesthetic Complications: no major complications apparent The patient did well. He was given insulin preoperatively and his BSG has come down from the 280s to the 200s. He is on a sliding scale on the floor.
[2016-07-09] MEDS: PANTOprazole INJ 40 MG in SYRINGE 0 ML IV SCH (15:18)
[2016-07-09] MEDS ORDERED: PHARMACY GLYCEMIC MGMT CONSULT PRN (17:30)
[2016-07-09] MEDS: hydrOXYzine HCL 25 MG TAB PO SCH (18:47)
[2016-07-09] MEDS: MoRPHine SULFATE 4 MG/ML 1 ML CARP\\VIAL IV PRN (20:19)
--- NOTE | 2016-07-09 21:29 | Hospitalist Progress Note ---
Hospitalist Progress Note Date of Service Jul 09, 2016. Subjective Pt evaluation today including: conversation w/ patient patient with no complaints going to mri asked about results of biopsy Medications __ Medications (Trade) Dose Ordered Sig/Nurys Route Start Time Stop Time Status Last Admin Dose Admin Pantoprazole Sodium/Syringe (Protonix Inj/ Syringe) 10 ml @ 5 mls/min DAILY@11 IV 07/09/16 11:00 08/08/16 10:59 07/09/16 15:18 5 MLS/MIN HCTZ/Lisinopril (Prinzide 10-12.5MG Tab) 1 tab ONE ONCE PO 07/09/16 05:00 07/09/16 05:04 DC 07/09/16 05:14 1 TAB Insulin Human Regular (novoLIN-R U-100 PER UNIT) 6 units STK-MED ONCE .ROUTE 07/09/16 10:17 07/09/16 10:18 DC 07/09/16 10:20 6 UNITS Insulin Human Regular (novoLIN-R U-100 PER UNIT) 12 units STK-MED ONCE .ROUTE 07/09/16 11:18 07/09/16 11:19 DC 07/09/16 11:18 12 UNITS Objective Vital Signs Date Time Temp Pulse Resp B/P Pulse Ox O2 Delivery O2 Flow Rate FiO2 07/09/16 16:00 Nasal Cannula 2.0 07/09/16 15:11 37.4 78 16 144/78 90 Nasal Cannula 2.0 07/09/16 14:55 37.4 98 14 140/74 95 Nasal Cannula 2 07/09/16 14:45 96 20 133/73 93 Nasal Cannula 2 07/09/16 14:35 100 17 134/75 99 Mask 10 07/09/16 14:25 95 23 131/71 99 Mask 10 07/09/16 14:15 37.3 95 16 132/75 99 Mask 10 07/09/16 10:01 156/88 07/09/16 08:00 Room Air 07/09/16 07:41 37.1 105 20 170/90 94 07/09/16 06:15 173/84 07/09/16 04:53 171/88 07/09/16 04:11 190/102 07/09/16 00:14 36.4 99 16 167/83 93 Room Air 07/08/16 23:45 168/87 07/08/16 23:45 Room Air 07/08/16 22:42 94 07/08/16 22:33 188/99 07/08/16 22:00 201/111 Physical Exam General Appearance: no apparent distress Eyes: normal inspection Respiratory/Chest: lungs clear Cardiovascular: regular rate, rhythm Abdomen: normal bowel sounds Extremities: normal range of motion Laboratory Results Last 24 Hours Test 07/09/16 07:01 07/09/16 07:35 07/09/16 10:00 07/09/16 11:00 White Blood Count 7.99 K/uL Red Blood Count 5.20 M/uL Hemoglobin 14.9 g/dL Hematocrit 42.1 % Mean Corpuscular Volume 81.0 fL Mean Corpuscular Hemoglobin 28.7 pg Mean Corpuscular Hemoglobin Concent 35.4 g/dl RDW Standard Deviation 42.3 fL RDW Coefficient of Variation 14.3 % Platelet Count 190 K/uL Mean Platelet Volume 10.1 fL Sodium Level 133 mmol/L Potassium Level 4.0 mmol/L Chloride Level 99 mmol/L Carbon Dioxide Level 25 mmol/L Anion Gap 9.0 mmol/L Blood Urea Nitrogen 18 mg/dl Creatinine 1.10 mg/dl Est Creatinine Clear Calc Drug Dose 80.8 ml/min Estimated GFR () 84.1 Estimated GFR (Non- 72.6 BUN/Creatinine Ratio 16.0 Random Glucose 294 mg/dl Estimated Average Glucose 226 mg/dl Hemoglobin A1c 9.5 % Calcium Level 8.3 mg/dl Magnesium Level 1.9 mg/dl Total Bilirubin 1.1 mg/dl Aspartate Amino Transf (AST/SGOT) 22 U/L Alanine Aminotransferase (ALT/SGPT) 30 U/L Alkaline Phosphatase 81 U/L Total Protein 7.4 gm/dl Albumin 3.4 gm/dl Globulin 4.0 gm/dl Albumin/Globulin Ratio 0.9 Amylase Level 28 U/L Lipase 70 U/L Bedside Glucose 296 mg/dl 284 mg/dl 288 mg/dl Test 07/09/16 11:52 07/09/16 14:32 07/09/16 17:00 Bedside Glucose 207 mg/dl 205 mg/dl Carcinoembryonic Antigen 1.4 ng/ml Assessment and Plan (1) Pancreatic mass Assessment & Plan: s/p biopsy today will await path results (2) Diabetes Assessment & Plan: continue insulin coverage (3) HIV (human immunodeficiency virus infection) Assessment & Plan: continue his outpat medications (4) Hepatitis C
[2016-07-09] MEDS ORDERED: INSULIN GLARGINE SOLOSTAR 100 UNITS/ML 3 ML PEN SC ONE (22:00)
--- NOTE | 2016-07-09 22:37 | DIAGNOSTIC IMAGING REPORT ---
MRI OF THE ABDOMEN COMBO CLINICAL HISTORY: Pancreatic mass. COMPARISON STUDY: Abdominal CT dated 07/08/2016. TECHNIQUE: MRI of the abdomen is performed transverse T1 and T2-weighted sequences in the axial and coronal planes. Contrast enhanced sequences were acquired following the IV administration of 10 cc of Gadavist. Subtraction imaging was performed. FINDINGS: Lower chest: There is dependent atelectasis. No pleural effusion is identified. The heart is normal in size. Liver: The liver is normal in size, contour, and signal intensity. No intrahepatic biliary ductal dilatation is seen. The hepatic veins and portal veins are patent. There are 2 small hypervascular lesions identified in the right lobe of the liver measuring up to 11 mm. The larger lesion clearly demonstrates peripheral nodular enhancement and both retain contrast. These lesions are consistent with small hemangiomas. Gallbladder: Unremarkable. Spleen: Normal in size and signal intensity. Pancreas: The pancreas head and uncinate process are normal in morphology. The pancreatic body and tail are markedly atrophic and the main pancreatic duct is significantly dilated measuring up to 10 mm. No discrete mass lesion is identified. The splenic vein is patent. Adrenal glands: Unremarkable. Kidneys: The kidneys are normal in size and without hydronephrosis. The kidneys enhance and excrete symmetrically. Abdominal aorta: Normal in course and caliber Bowel: Visualized portions of the small bowel and colon show no evidence of obstruction. Peritoneum: There is no abdominal ascites. Lymphadenopathy: No upper abdominal lymphadenopathy is identified. Skeletal structures: The visualized skeletal structures times demonstrate normal marrow signal intensity. IMPRESSION: 1. The pancreatic head and uncinate are normal in morphology. No clear mass lesion is identified. 2. The pancreatic body and tail are markedly atrophic and there is diffuse dilatation of the pancreatic duct. The appearance remains highly concerning for an obstructing mass. Endoscopic ultrasound with biopsy is again recommended. 3. There is no evidence of metastatic disease in the upper abdomen. 4. Two small hypervascular hepatic lesions are consistent with hemangiomas. Electronically signed by: Familia Reyes M.D. 07/09/2016 10:35 PM Dictated Date/Time: 07/09/2016 10:27 PM
[2016-07-10 00:31] VITALS: BP 149/71; PULSE 93; TEMP 36.7; O2SAT 96
[2016-07-10] MEDS ORDERED: INSULIN ASPART 100 UNITS/ML 3 ML PEN SC SCH (02:00)
[2016-07-10] MEDS: SODIUM CHLORIDE 0.9% 1000ML 1,000 ML IV SCH ×2 (06:42→17:28)
[2016-07-10 07:15] LABS: HEMATOCRIT 36.4 % (42-52); MEAN CELL VOLUME 80.5 fL (80-100); MEAN CORPUSCULAR HEMOGLOBIN 28.3 pg (25-34); MEAN CORPUSCULAR HGB CONC 35.2 g/dl (32-36); MEAN PLATELET VOLUME 9.7 fL (7.4-10.4); PLATELET COUNT 164 K/uL (130-400); RED BLOOD COUNT 4.52 M/uL (4.7-6.1)
[2016-07-10 07:19] VITALS: BP 155/85; PULSE 83; TEMP 37.1; O2SAT 95
[2016-07-10 07:57] LABS: ALB/GLOB RATIO 0.7 (0.9-2); CALCIUM 7.8 mg/dl (8.5-10.1); CREATININE 1.1 mg/dl (0.60-1.40); MAGNESIUM 2.3 mg/dl (1.8-2.4); POTASSIUM 4.1 mmol/L (3.5-5.1)
[2016-07-10] MEDS: ELVITEGRAVIR COBICISTAT EMTRIC PO SCH (08:48)
[2016-07-10] MEDS: GABAPENTIN 600 MG TAB PO SCH ×3 (08:48→20:26)
[2016-07-10] MEDS: INSULIN ASPART 100 UNITS/ML 3 ML PEN SC SCH ×4 (08:51→20:32)
[2016-07-10] MEDS: INSULIN GLARGINE SOLOSTAR 100 UNITS/ML 3 ML PEN SC SCH ×2 (08:53→20:32)
[2016-07-10 10:15] VITALS: O2SAT 94
--- NOTE | 2016-07-10 10:51 | Gastroenterology Progress Note ---
Progress Note Date of Service: Jul 10, 2016 Subjective Pt evaluation today including: conversation w/ patient, physical exam, chart review, lab review, review of studies, review of inpatient medication list cc F/U abd pain HPI Pt states tolerating solid food. NO abd pain. No stools this admit. Review of Systems Respiratory: No shortness of breath Cardiac: No chest pain Medications Current Inpatient Medications Medications (Trade) Dose Ordered Sig/Nurys Route Start Time Stop Time Status Last Admin Dose Admin Ioversol (Optiray 320) 100 ml UD PRN IV 07/08/16 10:30 07/12/16 10:29 Acetaminophen (Tylenol Tab) 650 mg Q4H PRN PO 07/08/16 13:45 08/07/16 13:44 Al Hydrox/Mg Hydrox/Simethicone (Maalox Max Susp) 15 ml Q4H PRN PO 07/08/16 13:45 08/07/16 13:44 Magnesium Hydroxide (Milk Of Magnesia Susp) 30 ml Q6H PRN PO 07/08/16 13:45 08/07/16 13:44 Polyethylene (Miralax Powder Packet) 17 gm DAILY PRN PO 07/08/16 13:45 08/07/16 13:44 Ondansetron HCl (Zofran Inj) 4 mg Q6H PRN IV 07/08/16 13:45 08/07/16 13:44 Hydromorphone HCl (Dilaudid Inj) 0.5 mg Q3H PRN IV 07/08/16 13:45 07/22/16 13:44 07/08/16 21:36 0.5 MG Hydromorphone HCl (Dilaudid Inj) 1 mg Q3H PRN IV 07/08/16 13:45 07/22/16 13:44 07/09/16 07:37 1 MG Gabapentin (Neurontin Tab) 600 mg TID PO 07/08/16 21:00 08/07/16 20:59 07/10/16 08:48 600 MG Hydroxyzine HCl 50 mg 50 mg DAILY@1900 PO 07/08/16 19:00 08/07/16 18:59 07/09/16 18:47 50 MG Pantoprazole Sodium 40 mg/ Syringe 10 ml @ 5 mls/min DAILY@11 IV 07/09/16 11:00 08/08/16 10:59 07/09/16 15:18 5 MLS/MIN Sodium Chloride (Nss 1000ml) 1,000 ml @ 100 mls/hr Q10H IV 07/08/16 13:45 08/07/16 13:44 07/10/16 06:42 100 MLS/HR Morphine Sulfate (MoRPHine SULFATE INJ) 4 mg Q3H PRN IV 07/08/16 14:15 07/22/16 14:14 07/09/16 20:19 4 MG Morphine Sulfate (MoRPHine SULFATE INJ) 6 mg Q3H PRN IV 07/08/16 14:15 07/22/16 14:14 Insulin Aspart (novoLOG ASPART) SLIDING SCALE G... ACHS SC 07/08/16 16:00 08/07/16 15:59 07/10/16 08:51 15 UNITS Glucose (Glucose 40% Gel) 15-30 GRAMS 15 GRAMS... UD PRN PO 07/08/16 15:30 08/07/16 15:29 Glucose (Glucose Chew Tab) 4-8 Tablets 4 Tabl... UD PRN PO 07/08/16 15:30 08/07/16 15:29 Dextrose (Dextrose 50% 50ML Syringe) 25-50ML OF 50% DW IV FOR... UD PRN IV 07/08/16 15:30 08/07/16 15:29 Glucagon (Glucagon Inj) 1 mg UD PRN SQ 07/08/16 15:30 08/07/16 15:29 Hydralazine HCl 10 mg 10 mg Q6 PRN IV. 07/08/16 15:45 08/07/16 15:44 07/09/16 04:07 10 MG Acetaminophen (Ofirmev Iv) 100 ml @ 400 mls/hr Q8H PRN IV 07/08/16 15:45 08/07/16 15:44 Elvitegravir/ Cobicis/Emtricit/ Tenof (Genvoya [phone] Mg) 1 tab QDB PO 07/10/16 08:00 08/09/16 07:59 07/10/16 08:48 1 TAB Miscellaneous Information (Consult Glycemic Management Pharmacy) 1 ea UD PRN N/A 07/09/16 17:30 08/08/16 17:29 Insulin Glargine (Lantus Solostar Pen) SEE PROTOCOL BID SC 07/10/16 09:00 08/09/16 08:59 07/10/16 08:53 20 UNIT Objective Vital Signs Date Time Temp Pulse Resp B/P Pulse Ox O2 Delivery O2 Flow Rate FiO2 07/10/16 10:15 94 Room Air 07/10/16 07:30 Room Air 07/10/16 07:19 37.1 83 18 155/85 95 Room Air 07/10/16 00:31 36.7 93 16 149/71 96 2.0 07/09/16 23:45 Nasal Cannula 2.0 07/09/16 20:20 Nasal Cannula 2.0 07/09/16 16:00 Nasal Cannula 2.0 07/09/16 15:11 37.4 78 16 144/78 90 Nasal Cannula 2.0 07/09/16 14:55 37.4 98 14 140/74 95 Nasal Cannula 2 07/09/16 14:45 96 20 133/73 93 Nasal Cannula 2 07/09/16 14:35 100 17 134/75 99 Mask 10 07/09/16 14:25 95 23 131/71 99 Mask 10 07/09/16 14:15 37.3 95 16 132/75 99 Mask 10 Physical Exam General Appearance: WD/WN, no apparent distress Respiratory/Chest: lungs clear, no respiratory distress Cardiovascular: regular rate, rhythm Abdomen: normal bowel sounds, non tender, soft, no organomegaly Laboratory Results Last 24 Hours Test 07/09/16 11:00 07/09/16 11:52 07/09/16 14:32 07/09/16 16:18 Bedside Glucose 288 mg/dl 207 mg/dl 205 mg/dl 253 mg/dl Test 07/09/16 17:00 07/09/16 20:22 07/10/16 01:58 07/10/16 06:45 Carcinoembryonic Antigen 1.4 ng/ml Bedside Glucose 244 mg/dl 287 mg/dl White Blood Count 6.20 K/uL Red Blood Count 4.52 M/uL Hemoglobin 12.8 g/dL Hematocrit 36.4 % Mean Corpuscular Volume 80.5 fL Mean Corpuscular Hemoglobin 28.3 pg Mean Corpuscular Hemoglobin Concent 35.2 g/dl RDW Standard Deviation 41.8 fL RDW Coefficient of Variation 14.2 % Platelet Count 164 K/uL Mean Platelet Volume 9.7 fL Sodium Level 140 mmol/L Potassium Level 4.1 mmol/L Chloride Level 106 mmol/L Carbon Dioxide Level 29 mmol/L Anion Gap 5.0 mmol/L Blood Urea Nitrogen 19 mg/dl Creatinine 1.10 mg/dl Est Creatinine Clear Calc Drug Dose 80.8 ml/min Estimated GFR () 84.1 Estimated GFR (Non- 72.6 BUN/Creatinine Ratio 17.0 Random Glucose 254 mg/dl Calcium Level 7.8 mg/dl Magnesium Level 2.3 mg/dl Total Bilirubin 0.8 mg/dl Aspartate Amino Transf (AST/SGOT) 23 U/L Alanine Aminotransferase (ALT/SGPT) 24 U/L Alkaline Phosphatase 80 U/L Total Protein 6.8 gm/dl Albumin 2.9 gm/dl Globulin 3.9 gm/dl Albumin/Globulin Ratio 0.7 Amylase Level 61 U/L Lipase 531 U/L Assessment and Plan Pancreas mass on EUS---CEA neg, [id number] pending. FNA of pancreas mass and pancreas abnormal tissue pending elevated lipase---531--may be some post bx chemical pancreatitis but no abd pain so nothing further to do--repeat lipase in am enlarged peripancreatic node--FNA pending thickened SB in LLQ--no abd pain and no diarrhea so no further workup dilated PD--presumably from blockage from mass--no discrete mass seen on MRI or CT but was seen on EUS liver hemangiiomas on MRI--nothing further to do No further testing at present recommended. Waiting for cytology from FNA to come back. If no further issues could be DCed tomorrow.
[2016-07-10] MEDS: PANTOprazole INJ 40 MG in SYRINGE 0 ML IV SCH (11:15)
--- NOTE | 2016-07-10 13:41 | Pharmacy Progress Note ---
Glycemic Control Intl Consult Date of Service Jul 10, 2016. Scope Glycemic Pharmacist consulted by Dr Weller on 07/09/16 for glycemic control and to write orders per [facility] inpatient glycemic control protocol Objective Weight (Kilograms): 97.300 Accuchecks BSG (last 24hrs): Test 07/09/16 14:32 07/09/16 16:18 07/09/16 20:22 07/10/16 01:58 Bedside Glucose 205 mg/dl (70-99) 253 mg/dl (70-99) 244 mg/dl (70-99) 287 mg/dl (70-99) Test 07/10/16 06:45 07/10/16 07:32 07/10/16 11:19 Random Glucose 254 mg/dl (70-99) Bedside Glucose 259 mg/dl (70-99) 236 mg/dl (70-99) Laboratory Data (last 24hrs) Test 07/10/16 06:45 Anion Gap 5.0 mmol/L BUN/Creatinine Ratio 17.0 Blood Urea Nitrogen 19 mg/dl Creatinine 1.10 mg/dl Potassium Level 4.1 mmol/L Sodium Level 140 mmol/L White Blood Count 6.20 K/uL HbA1c Test 07/09/16 07:01 Hemoglobin A1c 9.5 % (4.5-5.6) H Recent Pertinent Medications Outpatient Anti-diabetic Regimen: * Humulin 70/30 mixed insulin * 37 units SQ BID * Humulin R insulin * sliding scale BID * A1c = 9.5 % 06/2016 The patient is currently receiving: * Basal insulin: Lantus 20 units SQ x 1 dose last evening * Correctional Insulin: NovoLog Correction per scale AC/HS Goal Range: Low 120 mg/dL - High 160 mg/dL Correction Factor: 15 mg/dL/unit * Prandial insulin: Per carb ratio of 1 unit per 6 grams CHO consumed Risk Factors for Insulin Resistance: * Diet: Assessment & Plan ASSESSMENT: * ADA & AACE recommend a goal blood sugar range 140-180 mg/dl for the majority of critically ill & non-critically ill patients. However, more stringent targets may be selected in individual cases. Lower goal range chosen for non- elderly that is currently not meeting glycemic goals. 07/10/16 * 61 y/o diabetic on mixed insulin and sliding scale coverage as an outpatient * A1c shows room for improvement with glycemic control * BSGs elevated since admission, likely the patient is basal insulin deficient at this time * Mixed insulin is difficult to titrate in hospital - changed to SQ basal/bolus with Lantus/NovoLog last evening. PLAN FOR INPATIENT GLYCEMIC CONTROL: * Increase Lantus to 25 units SQ BID * (this represents outpatient basal component of 70/30 insulin dose) * Continue NovoLog AC and HS * add overnight Accu-checks while acutely hyperglycemic * Correction factor: tighten to 12mg/dL/unit * Carb ratio: tight to 1 unit per 4g of CHO consumed * Goal range; 110-140mg/dL * A1c - add to discharge instructions RECOMMENDATIONS FOR DISCHARGE: * Awaited * Please note that the plan above was derived based on current level of insulin resistance and hospital stress. These recommendations are appropriate for inpatient admission only. Plan of care upon discharge will need to be reassessed to avoid potential outpatient hypo/hyperglycemia. Thank you.
[2016-07-10 15:12] VITALS: BP 146/79; PULSE 88; TEMP 37.3; O2SAT 93
[2016-07-10 16:28] VITALS: O2SAT 93
--- NOTE | 2016-07-10 16:44 | Hospitalist Progress Note ---
Hospitalist Progress Note Date of Service Jul 10, 2016. Subjective Pt evaluation today including: conversation w/ patient Pain: 0 patient has not had bowel movement since admission. On narcotics secondary to pain which has resolved All Other Systems: Reviewed and Negative Medications Last Resulted CBC 07/10/16 06:45 Last Resulted BMP 07/10/16 06:45 Medications (Trade) Dose Ordered Sig/Nurys Route Start Time Stop Time Status Last Admin Dose Admin Elvitegravir/ Cobicis/Emtricit/ Tenof (Genvoya [phone] Mg) 1 tab QDB PO 07/10/16 08:00 08/09/16 07:59 07/10/16 08:48 1 TAB Insulin Glargine (Lantus Solostar Pen) 20 unit ONE ONCE SC 07/09/16 22:00 07/09/16 22:01 DC 07/09/16 22:39 20 UNIT Insulin Aspart (novoLOG ASPART) SLIDING SCALE G... 0200 SC 07/10/16 02:00 07/10/16 02:01 DC 07/10/16 02:08 9 UNITS Insulin Glargine (Lantus Solostar Pen) SEE PROTOCOL BID SC 07/10/16 09:00 08/09/16 08:59 07/10/16 08:53 20 UNIT Objective Vital Signs Date Time Temp Pulse Resp B/P Pulse Ox O2 Delivery O2 Flow Rate FiO2 07/10/16 15:12 37.3 88 18 146/79 93 Room Air 07/10/16 10:15 94 Room Air 07/10/16 07:30 Room Air 07/10/16 07:19 37.1 83 18 155/85 95 Room Air 07/10/16 00:31 36.7 93 16 149/71 96 2.0 07/09/16 23:45 Nasal Cannula 2.0 07/09/16 20:20 Nasal Cannula 2.0 Physical Exam General Appearance: WD/WN, no apparent distress Eyes: normal inspection ENT: normal ENT inspection, hearing grossly normal Neck: supple, trachea midline Respiratory/Chest: lungs clear, normal breath sounds, no respiratory distress Cardiovascular: regular rate, rhythm, no edema Abdomen: normal bowel sounds, non tender, soft Extremities: normal range of motion Skin: warm/dry Laboratory Results Last 24 Hours Test 07/09/16 17:00 07/09/16 20:22 07/10/16 01:58 07/10/16 06:45 Carcinoembryonic Antigen 1.4 ng/ml Bedside Glucose 244 mg/dl 287 mg/dl White Blood Count 6.20 K/uL Red Blood Count 4.52 M/uL Hemoglobin 12.8 g/dL Hematocrit 36.4 % Mean Corpuscular Volume 80.5 fL Mean Corpuscular Hemoglobin 28.3 pg Mean Corpuscular Hemoglobin Concent 35.2 g/dl RDW Standard Deviation 41.8 fL RDW Coefficient of Variation 14.2 % Platelet Count 164 K/uL Mean Platelet Volume 9.7 fL Sodium Level 140 mmol/L Potassium Level 4.1 mmol/L Chloride Level 106 mmol/L Carbon Dioxide Level 29 mmol/L Anion Gap 5.0 mmol/L Blood Urea Nitrogen 19 mg/dl Creatinine 1.10 mg/dl Est Creatinine Clear Calc Drug Dose 80.8 ml/min Estimated GFR () 84.1 Estimated GFR (Non- 72.6 BUN/Creatinine Ratio 17.0 Random Glucose 254 mg/dl Calcium Level 7.8 mg/dl Magnesium Level 2.3 mg/dl Total Bilirubin 0.8 mg/dl Aspartate Amino Transf (AST/SGOT) 23 U/L Alanine Aminotransferase (ALT/SGPT) 24 U/L Alkaline Phosphatase 80 U/L Total Protein 6.8 gm/dl Albumin 2.9 gm/dl Globulin 3.9 gm/dl Albumin/Globulin Ratio 0.7 Amylase Level 61 U/L Lipase 531 U/L Test 07/10/16 07:32 07/10/16 11:19 Bedside Glucose 259 mg/dl 236 mg/dl Assessment and Plan (1) Pancreatic mass (2) Diabetes (3) HIV (human immunodeficiency virus infection) (4) Hepatitis C
[2016-07-10] MEDS: SENNA 17.6 MG/10 ML UDP PO SCH (17:29)
[2016-07-10] MEDS: hydrOXYzine HCL 25 MG TAB PO SCH (20:26)
[2016-07-10 23:42] VITALS: BP 149/69; PULSE 82; TEMP 37; O2SAT 93
[2016-07-11] VITALS: O2SAT 93
[2016-07-11] MEDS: SODIUM CHLORIDE 0.9% 1000ML 1,000 ML IV SCH (02:51)
[2016-07-11] MEDS: INSULIN ASPART 100 UNITS/ML 3 ML PEN SC SCH ×4 (04:15→12:42)
[2016-07-11 05:59] LABS: BASO % 0.4 %; BASO ABS # 0.02 K/uL (0-0.2); COMPLETE YES; EOS % 2.6 %; HEMATOCRIT 36.7 % (42-52); IG% 0.2 %; LYMPH % 41.5 %; LYMPH ABS # 2.25 K/uL (1.2-3.4); MEAN CELL VOLUME 81.9 fL (80-100); MEAN CORPUSCULAR HEMOGLOBIN 28.1 pg (25-34); MEAN CORPUSCULAR HGB CONC 34.3 g/dl (32-36); MEAN PLATELET VOLUME 9.8 fL (7.4-10.4); MONO % 8.7 %; NEUT % 46.6 %; PLATELET COUNT 155 K/uL (130-400); RED BLOOD COUNT 4.48 M/uL (4.7-6.1); WHITE BLOOD COUNT 5.42 K/uL (4.8-10.8)
[2016-07-11 06:31] LABS: BUN/CREATININE RATIO 15.9 (10-20); CALCIUM 8.1 mg/dl (8.5-10.1); CREATININE 0.92 mg/dl (0.60-1.40); MAGNESIUM 2.2 mg/dl (1.8-2.4); POTASSIUM 4.1 mmol/L (3.5-5.1)
[2016-07-11 06:34] LABS: ALB/GLOB RATIO 0.7 (0.9-2)
[2016-07-11 07:16] VITALS: BP 177/94; PULSE 72; TEMP 37.1; O2SAT 94
[2016-07-11] MEDS: GABAPENTIN 600 MG TAB PO SCH (08:30)
[2016-07-11] MEDS: SENNA 17.6 MG/10 ML UDP PO SCH (08:30)
[2016-07-11] MEDS: ELVITEGRAVIR COBICISTAT EMTRIC PO SCH (08:31)
[2016-07-11] MEDS: INSULIN GLARGINE SOLOSTAR 100 UNITS/ML 3 ML PEN SC SCH (08:34)
[2016-07-11 09:45] VITALS: BP 154/80
--- NOTE | 2016-07-11 09:54 | Discharge Instructions ---
Discharge Instructions Admission Admission Date: Jul 08, 2016 at 13:59 Admission Diagnosis: Intractable Abdominal Pain. Discharge Care Plan - Problem: Medical Problems: (1) Pancreatic mass Care Plan - Goal(s): Decrease discomfort, Improve function Care Plan - Instructions: Activity Recommendations: no limitations Recommended Home Diet: Type 2 Diabetes AHA Provider Instructions: Patient had results pending from pancreatic biopsy VTE Core Measure Inpt VTE Proph given/why not?: Rukhsana Zamudio, SCD's Laboratory Results Test Results: Hemoglobin A1c Test 07/09/16 07:01 Range/Units Estimated Average Glucose 226 mg/dl Hemoglobin A1c 9.5 H 4.5-5.6 % Alyssa Glover Recommendations: Call your doctor if: * Temperature above 101 degrees * Pain not relieved by pain medicine ordered * There is increased drainage or redness from any incision * You have any unanswered questions or concerns. Your Doctors Instructions noted above were prepared by provider Gisel Israel.
[2016-07-11 10:58] VITALS: BP 154/80; PULSE 72; TEMP 37.1; O2SAT 94
[2016-07-11] MEDS: PANTOprazole INJ 40 MG in SYRINGE 0 ML IV SCH (11:06)
--- NOTE | 2016-07-11 11:53 | Discharge Summary ---
Discharge Summary Date of Service Jul 11, 2016. Discharge Summary Admission Date: Jul 08, 2016 at 13:59 Discharge Date: Jul 11, 2016 Discharge Disposition: Home Principal Diagnosis: Pancreatic MAss Consultations: GI Medication Reconciliation Continued Medications: Atorvastatin (Lipitor) 40 Mg Tab 40 MG PO DAILY, TAB Cholecalciferol (Vitamin D3) 1,000 Unit Tab 1 TAB PO DAILY, TAB Rakrjutsfxdc-Gpiutfnaiv-Ezsyeu (Genvoya [phone] mg) 1 Tab Tab 1 TAB PO DAILY 0700 Gabapentin (Neurontin) 600 Mg Tab 600 MG PO TID, TAB [id number] Hctz/Lisinopril (Lisinopril/Hctz 10/12.5 Mg) 1 Ea Tab 1 TAB PO DAILY, TAB Hydroxyzine Pamoate (Vistaril) 50 Mg Cap 50 MG PO QPM, CAP 1900 Insulin Human Regular (Humulin R) 100 Units/Ml Susp 1 DOSE SQ QID SLIDING SCALE [id number] Insulin Isophan/Regular (Humulin 70/30) Susp 37 UNITS SC AMPM, VIAL 7819-1641 Lisinopril (Zestril) 10 Mg Tab 10 MG PO DAILY, TAB Loperamide HCl (Loperamide HCl) 2 Mg Cap 1 CAP PO Multiple Vitamins W/ Minerals (Thera M Plus) 1 Tab Tab 1 TAB PO DAILY Omeprazole (Omeprazole) 20 Mg Tab 1 TAB PO DAILY Discharge Exam Review of Systems: Constitutional: No chills, No fever Eyes: No worsening of vision ENT: No hearing loss Respiratory: No cough, No sputum Cardiovascular: No chest pain Abdomen: No nausea, No pain Musculoskeletal: No joint pain Genitourinary - Female: No dysuria Genitourinary - Male: No hematuria Neurologic: No memory loss Psychiatric: No depression symptoms Endocrine: No fatigue Hematologic / Lymphatic: No abnormal bleeding/bruising Integumentary: No rash Physical Exam: General Appearance: WD/WN, no apparent distress Eyes: normal inspection ENT: normal ENT inspection Neck: supple, no adenopathy Respiratory/Chest: chest non-tender, lungs clear Cardiovascular: regular rate, rhythm, no edema Abdomen / GI: normal bowel sounds, non tender, soft Extremities: normal inspection Neurologic/Psychiatric: receiving lead II-XII nml as tested, alert, oriented x 3 Skin: normal color, warm/dry, no rash Lymphatic: no adenopathy Hospital Course (1) Pancreatic mass (2) HIV (human immunodeficiency virus infection) (3) Hepatitis C Intractable Abdominal Pain with Pancreatic Mass: Normal Lipase -Patient admitted for abdominal pain. Admission CT abdomen showed Pancreatic Mass. GI was consulted and did an EUS biopsy on 07.09.16. Patients abdominal pain improved and he did not require pain medication for >24 hours prior to discharge. Hypertension: - Hydralazine 10 mg IV PRN HIV: CD4 1100 with undetectable viral load x 3 weeks ago - restarted on HARRT therapy inpatient Diabetes Mellitus with Neuropathy: - Held home insulin therapy as he will be NPO - SSI - goal range 120-160, correction factor 35 - Gabapentin 600 mg TID GERD with H/O Ruptured PUD: - continued on protonix DVT Prophylaxis: TARIK/SCDs; Code Status: FULL RESUSCITATION Disposition: Return to [facility] Total Time Spent: Greater than 30 minutes This includes examination of the patient, discharge planning, medication reconciliation, and communication with other providers. Discharge Instructions Please refer to the electronic Patient Visit Report (Discharge Instructions) for additional information.
== END 2016-07-11 13:03 | DRG 423 ==
LOC: ENRESERVTM → ENRESERVDT → C.EDB 10:03 → C.MS2W 13:59
PROVIDERS: ADMIT Hospitalist; ATTEND Hospitalist
PROC: 0FBG4ZX Excision of Pancreas, Percutaneous Endoscopic Approach, Diagnostic (ICD-10-PCS; principal; 2016-07-09 13:15)
PROC: 079 Lymphatic and Hemic Systems, Drainage (ICD-10-PCS; principal; 2016-07-09 13:15)
DX: K86.89 Other specified diseases of pancreas (principal); B20 Human immunodeficiency virus [HIV] disease; R59.0 Localized enlarged lymph nodes; D18.03 Hemangioma of intra-abdominal structures; E11.65 Type 2 diabetes mellitus with hyperglycemia; B19.20 Unspecified viral hepatitis C without hepatic coma; I10 Essential (primary) hypertension; E11.40 Type 2 diabetes mellitus with diabetic neuropathy, unspecified; E78.00 Pure hypercholesterolemia, unspecified; F17.200 Nicotine dependence, unspecified, uncomplicated; Z79.899 Other long term (current) drug therapy; Z79.4 Long term (current) use of insulin